=== PATIENT | male | born 1990 | race Caucasian/White ===

== ENCOUNTER → 2016-11-13 | Outpatient (CLI) | payer SELFPAY | LOC: BHSO 15:33 | DX: F90.0 Attention-deficit hyperactivity disorder, predominantly inattentive type (principal) ==

== ENCOUNTER → 2016-12-12 | Outpatient (CLI) | payer SELFPAY | LOC: BHSO 10:04 | DX: F90.0 Attention-deficit hyperactivity disorder, predominantly inattentive type (principal) ==

== ENCOUNTER 2017-03-12 23:33 | Emergency (ER) | payer OTHER ==
[~2017-03-12] VITALS: Ht 193 cm; Wt 80.0 kg
[2017-03-12 23:52] VITALS: BP 121/91; TEMP 98.6
[2017-03-13 00:59] VITALS: PULSE 72
== END 2017-03-13 01:01 | disposition home or self-care (01) ==
LOC: COL.ER 23:33
DX: S61.012A Laceration without foreign body of left thumb without damage to nail, initial encounter (principal); W27.4XXA Contact with kitchen utensil, initial encounter; Y92.89 Other specified places as the place of occurrence of the external cause; Z23 Encounter for immunization